=== PATIENT | male | born 1970 | race Caucasian/White ===

== ENCOUNTER 2020-02-25 10:36 | Outpatient (CLI) | payer OTHER, SELFPAY ==
--- NOTE | ~2020-02-25 | MR_ITS ---
EXAMINATION: MR lumbar spine wo [facility] EXAM DATE: 02/25/2020 11:23 INDICATION: Midline low back pain, bilateral sciatica. TECHNIQUE: Multi-sequential, multiplanar MR images of the lumbar spine were obtained without contrast . Sagittal T1, T2, T2 fat saturation images. Axial T2 weighted images. There is no prior study for comparison. FINDINGS: The conus medullaris terminates at the L1/2 level and has normal signal intensity and morph ology. There are no suspicious marrow signal abnormalities. The vertebral bodies are aligned in the AP dimension. Vertebral body and disc heights are well-maintained. Paraspinal soft tissue is unremark able. Level by level evaluation: T12-L1: Disc does not extend beyond the endplate margin. Facet arthropathy: None. Neural foraminal stenosis: No stenosis. Central canal stenosis: No stenosis. L1-L2: Disc does not extend beyond the endplate margin. Facet arthropathy: Mild. Neural foraminal stenosis: No stenosis. Central canal stenosis: No stenosis. L2-L3: There is a mild diffuse disc bulge. Facet arthropathy: None. Neural foraminal stenosis: No stenosis. Central canal stenosis: No stenosis. L3-L4: Disc does not extend beyond the endplate margin. Facet arthropathy: Mild. Neural foraminal stenosis: No stenosis. Central canal stenosis: No stenosis. L4-L5: Disc does not extend beyond the endplate margin. Facet arthropathy: Mild. Neural foraminal stenosis: Mild left. Central canal stenosis: No stenosis. L5-S1: There is a mild diffuse disc bulge. Facet arthropathy: Mild to moderate left, mild right. Neural foraminal stenosis: Moderate left, mild right. Central canal stenosis: No stenosis. IMPRESSION: L5-S1 moderate left neural foraminal stenosis. Otherwise overall mild lumbar spondylosis. Reviewed, dictated and finalized at location A. IMPRESSION: L5-S1 moderate left neural foraminal stenosis. Otherwise overall mi ld lumbar spondylosis.
== END 2020-02-25 10:37 | disposition home or self-care (01) ==
PROVIDERS: Visit Provider Nurse Practitioner Family
DX: M54.41 Lumbago with sciatica, right side (principal); M54.42 Lumbago with sciatica, left side; G89.29 Other chronic pain; M47.816 Spondylosis without myelopathy or radiculopathy, lumbar region; M48.07 Spinal stenosis, lumbosacral region
CPT/HCPCS: 72148

== ENCOUNTER 2020-10-06 12:35 | Emergency (ER) | payer OTHER, SELFPAY ==
--- NOTE | ~2020-10-06 | XR_ITS ---
EXAMINATION: XR chest 2V DATE: 10/06/2020 13:13 INDICATION: Shortness of breath. Anxiety. Hypertension. TECHNIQUE: PA and lateral views of the chest were obtained. COMPARISON: Chest radiograph dated 04/25/2012 FINDINGS: The lungs remain clear with no focal airspace opacities, pulmonary edema, pleural effusion or pneumot horax. The cardiomediastinal silhouette is normal. Mild thoracic spondylosis and chronic mild anterio r wedging of a couple mid thoracic vertebral bodies. IMPRESSION: 1. No acute cardiopulmonary disease. Reviewed, dictated and finalized at location A. RIDER
[2020-10-06 12:37] VITALS: BP 154/97; PULSE 95; RESP 20; TEMP 36.6; O2SAT 98
--- NOTE | 2020-10-06 12:48 | ECG_ITS ---
Measurements Intervals [place] Rate: 99 P: 52 FL: 191 QRS: 32 QRSD: 98 T: 16 QT: 307 QTc: 395 Interpretive Statements SINUS RHYTHM WITH MARKED SINUS ARRHYTHMIA VOLTAGE CRITERIA FOR LVH CONSIDER INFERIOR INFARCT, AGE INDETERMINATE BASELINE ARTIFACT- V5-V6 ABNORMAL ECG Electronically Signed On 10-06-2020 16:30:35 MACHINE HELPER by Josh Feliciano D.O.
[2020-10-06 13:13] LABS: Basophils Percent Auto 0.3 % (0.2-1.2); Eosinophils Absolute Auto 0.1 K/mm3 (0-0.3); Hematocrit 54.1 % (42.0-52.0); Hemoglobin 18.9 g/dL (14.0-18.0); Immature Granulocyte Absolute 0.04 K/mm3 (0.00-0.031); Immature Granulocyte Percent A 0.4 % (0-0.5); Lymphocytes Percent Auto 9.9 % (18.3-44.2); Mean Corpuscular HGB Conc 34.9 g/dl (32-36); Mean Corpuscular Hemoglobin 32.8 pg (26-34); Mean Corpuscular Volume 93.9 fl (80-100); Mean Platelet Volume 10.4 fl (7.4-10.4); Monocytes Absolute Auto 0.8 K/mm3 (0.1-0.6); Monocytes Percent Auto 8.7 % (2.6-8.5); Neutrophils Absolute Auto 7.2 K/mm3 (1.3-6.7); Neutrophils Percent Auto 79.7 % (45.5-73.1); Platelet Count Result 170 k/mm3 (150-375); Red Blood Count 5.76 M/mm3 (4.6-6.20); Red Cell Distribution Width 11.7 % (11.5-14.5); White Blood Count 9.1 K/mm3 (4.5-10.0)
[2020-10-06 13:24] LABS: Anion Gap 5 mmol/L (8-16); Blood Urea Nitrogen 11 mg/dL (9-20); Calcium 9.3 mg/dL (8.4-10.2); Carbon Dioxide 32 mmol/L (22-30); Chloride 99 mmol/L (98-107); Estimated CRCL calculation 100 ml/min; Estimated Glomerular Filt Rate > 60; Glucose 130 mg/dL (75-110); Potassium 4.3 mmol/L (3.4-5.0); Sodium 136 mmol/L (137-145)
[2020-10-06 13:58] LABS: Amphetamine Screen Urine Negative (Negative); Barbiturate Screen Urine Negative (Negative); Benzodiazepines Screen Urine Negative (Negative); Cannabinoid Screen Urine Negative (Negative); Cocaine Screen Urine Negative (Negative); Methadone Screen Urine Negative (Negative); Opiate Screen Urine Negative (Negative); Phencyclidine Screen Urine Negative (Negative)
[2020-10-06 14:31] LABS: Add Urine Microscopic? NO; Appearance Urine Clear (Clear); Bilirubin Urine Negative (Negative); Blood Urine Negative (Negative); Color Urine Yellow (Yellow); Glucose Urine UA Negative (Negative); Ketones Urine Negative (Negative); Leukocyte Esterase Ur Negative LEU/UL (Negative); Nitrate Urine Negative (Negative); Protein Urine Negative (Negative); RBC Urine 0-2 /hpf (0-2); Specific Grav Ur 1.008 (1.001-1.035); Urobilinogen Urine Negative mg/dL (<2.0); WBC Urine 0-3 /hpf
[2020-10-06] MEDS: LORazepam INJ (*CRX) 2 MG/ML VIAL 1 MG IV PUSH (14:58)
[2020-10-06] MEDS: SODIUM CHLORIDE 0.9% IV 1,000 ML 999 ML IV CONT (14:58)
[2020-10-06 15:22] VITALS: BP 148/90; PULSE 84; RESP 14; O2SAT 97
--- NOTE | 2020-10-06 16:06 | ED.GENADULT ---
HPI - General Adult General Chief complaint: Recheck/Abnormal Lab/Rx Stated complaint: weakness, sob Time Seen by Provider: 10/06/20 13:06 Source: patient Mode of arrival: ambulatory Limitations: no limitations History of Present Illness HPI narrative: Patient is a 49-year-old male who presents complaining of generalized weakness, shortness of breath and anxiety. Patient reports being seen at urgent care and Covid tested, with negative results. He denies fever, sore throat or other complaints. He appears restless while sitting in room. Patient also has concerns with elevated blood pressure. He denies chest pain at this time. MD complaint: Anxiety, shortness of breath Related Data Home Medications Medication Instructions Recorded Confirmed cetirizine 10 mg capsule 10 mg PO DAILY 05/22/20 05/22/20 albuterol sulfate INHALATION 10/06/20 10/06/20 fluticasone propionate INTRANASAL 10/06/20 Allergies Allergy/AdvReac Type Severity Reaction Status Date / Time Penicillins Allergy Severe Unknown Verified 10/06/20 12:40 Review of Systems Review of Systems: Narrative: CONSTITUTIONAL: Denies fever, chills, or sweats. EYES: Denies visual changes, redness, or discharge. ENT: Denies rhinorrhea, congestion, sore throat, or otalgia. CARDIOVASCULAR: Denies chest pain, palpitations, or edema. RESPIRATORY: Denies cough, reports intermittent dyspnea. GASTROINTESTINAL: Denies abdominal pain, nausea, vomiting, or diarrhea. GENITOURINARY: Denies dysuria or hematuria. SKIN: Denies rash or itching. MUSCULOSKELETAL: Denies back pain, joint pain, or myalgia. NEUROLOGIC: Denies headache, numbness, dizziness, or weakness. PSYCHIATRIC: Reports anxiety PMFSH Past Medical History Medical History BMI 29.0-29.9,adult Lateral epicondylitis of both elbows Surgical History Surgical History H/O sinus surgery 2019 Family History Family History Mother Hypertension Cerebrovascular accident Heart disease Cancer Father Diabetes mellitus Hypertension Cerebrovascular accident Social History Social History (Updated 10/06/20 @ 16:11 by SUZIE Batista) Smoking status: Current some day smoker Alcohol intake: current Substance use type: other Other substance usage details: Kratom Last use: 2 days ago Living arrangements: with family Occupation/Education: occupation Additional occupation/education comments: [employer] Gender identity (if verbalized by the patient): Male Exam Narrative: Exam Narrative: GENERAL: Well-appearing, well-nourished, and in no acute distress. HEAD: Normocephalic, atraumatic. EYES: No redness or drainage. ENT: Mucous membranes pink and moist. CHEST: No respiratory distress. HEART: Regular rate and rhythm. EXTREMITIES: Normal range of motion. No edema. SKIN: Warm, dry, no rash. NEURO: No focal deficits. Alert and oriented x3. Gait steady. PSYCH: Normal affect. No signs of depression or anxiety. Course Vital Signs Vital signs: Vital Signs Temperature 36.6 C 10/06/20 12:37 Pulse Rate 95 10/06/20 12:37 Respiratory Rate 20 10/06/20 12:37 Blood Pressure 154/97 H 10/06/20 12:37 Pulse Oximetry 98 10/06/20 12:37 Temperature 36.6 C 10/06/20 12:37 Pulse Rate 84 10/06/20 15:22 Respiratory Rate 14 10/06/20 15:22 Blood Pressure 148/90 H 10/06/20 15:22 Pulse Oximetry 97 10/06/20 15:22 Medical Decision Making MDM Narrative Medical decision making narrative: Patient's lab results are within normal limits, chest x-ray reveals no cardiopulmonary disease. Patient does report that he uses kratom very heavily for the past 2 years and has recently stopped. Discussed with patient many other symptoms he may be experiencing could be from withdrawal. Patient is aware of symptoms that shoul
[2020-10-06 16:30] VITALS: BP 150/86; PULSE 92; RESP 18; O2SAT 98
== END 2020-10-06 16:35 | disposition home or self-care (01) ==
PROVIDERS: Emergency Medicine; Emergency Provider Nurse Practitioner
DX: F41.9 Anxiety disorder, unspecified (principal); F17.200 Nicotine dependence, unspecified, uncomplicated; R94.31 Abnormal electrocardiogram [ECG] [EKG]
CPT/HCPCS: 36415; 71046; 80048; 80307; 81003; 85025; 93005; 96374; 99284; J2060; J7030

== ENCOUNTER 2024-11-25 00:33 | Emergency (ER) | payer SELFPAY ==
--- NOTE | ~2024-11-25 | XR_ITS ---
EXAMINATION: XR chest 2V DATE: 11/25/2024 01:06 INDICATION: Chest pain TECHNIQUE: PA and lateral views of the chest were obtained. COMPARISON: Chest radiograph dated 10/06/2020 FINDINGS: The lungs remain clear with no focal airspace opacities, pulmonary edema, pleural effusion or pneumot horax. The cardiomediastinal silhouette is normal. Mild thoracic spondylosis with chronic mild anteri or wedging of a few mid thoracic vertebral bodies. IMPRESSION: 1. No acute cardiopulmonary disease. Reviewed, dictated and finalized at location A. REGULATOR
--- NOTE | 2024-11-25 00:33 | ECG_ITS ---
Test Date: 2024-11-25 00:37:15 Measurements Intervals [place] Rate: 103 P: 46 IN: 210 QRS: 19 QRSD: 101 T: -3 QT: 330 QTc: 432 Interpretive Statements SINUS TACHYCARDIA WITH FIRST DEGREE AV BLOCK POSSIBLE LEFT ATRIAL ENLARGEMENT VOLTAGE CRITERIA FOR LVH CONSIDER INFERIOR INFARCT, AGE INDETERMINATE BASELINE ARTIFACT- I, II, AVR, AVL, V4-V6 ABNORMAL ECG No previous ECG available for comparison Electronically Signed On 11-25-2024 06:40:00 SUGAR REFINERY SUPERVISOR by Josh Feliciano D.O.
--- OUTSIDE RECORDS SUMMARY | 2024-11-25 00:34 | XMS_ITS | Clinical Summary ---
Author Organization [facility] Address [address] [place] [address] Care Team Providers Care Principal Military Analyst Name Role Phone Unavailable Primary Care Provider Unavailabl e Allergies Active Allergy Reactions Criticality Noted Date Comments Penicillins Rash Low 11/30/2017 As a child Medications methylPREDNISol one (MEDROL DOSPACK) 4 mg Tablets, Dose Pack FOLLOW PACKAGE DIRECTIONS Active Multivitamin Capsule Take 1 Capsule by mouth. Active Active Problems No known active problems Encounters Date Type Department Care Team Description 11/14/2024 External Device Data ST[facility] ABSTRACTION Provider, Abstract 11/07/2024 External Device Data ST[facility] ABSTRACTION Provider, Abstract 11/07/2024 External Device Data ST[facility] ABSTRACTION Provider, Abstract 10/25/2024 External Device Data ST[facility] ABSTRACTION Provider, Abstract 10/24/2024 External Device Data ST[facility] ABSTRACTION Provider, Abstract 10/17/2024 External Device Data STL ABSTRACTION Provider, Abstract from Last 3 Months Social History Tobacco Use Types Packs/Day Years Used Date Smoking Tobacco: Former Cigarettes Alcohol Use Standard Drinks/Week Comments Yes 2 (1 standard drink = 0.6 oz pur e alcohol) Sex and Gender Information Value Date Recorded Sex Assigned at Not on file Legal Sex Male 11:22 AM CDT Gender Identity Not on file Sexual Orientation Not on file Last Filed Vital Signs Vital Sign Reading Time Taken Comments Blood Pressure 140/80 07/09/2023 2:00 PM CDT Pulse - - Temperature - - Respiratory Rate - - Oxygen Saturation - - Inhaled Oxygen Concentration - - Weight 93 kg (205 lb) 07/09/2023 2:00 PM CDT Height 182.9 cm (6') 07/09/2023 2:00 PM CDT Body Mass Index 27.8 07/09/2023 2:00 PM CDT Plan of Treatment Health Maintenance Due Date Last Done Comments HEPATITIS B VACCINES (1 of 3 - 19+ 3-dose series) 1990 COLORECTAL SCREENING 2016 Colorectal Cancer Screening 2016 FIT-DNA Q 3 years 2016 FIT/FOBT Q 1 year 2016 Flex Sig/CT Colonography Q 5 years 2016 ZOSTER VACCINE (1 of 2) 2021 INFLUENZA VACCINE (#1) 2024 DTAP/TDAP/TD VACCINES (2 - T d or Tdap) 09/04/2029 09/04/2019 PNEUMOCOCCAL VACCINE 0-64 YEARS Aged Out No longer eligible based on patient's age to complete this topic
--- OUTSIDE RECORDS SUMMARY | 2024-11-25 00:34 | XMS_ITS | Referral Summary ---
Author Organization [facility] Address [address] [place] [address] Care Team Providers Care Cotton Sampler Name Role Phone No, Physician Primary Care Provider [phone] Allergies Active Allergy Reactions Criticality Noted Date Comments Penicillins Unknown As a child Medications multivitamin capsuleIndicatio ns:Vitamin Deficiency Prevention Take 1 capsule by mouth every morning Active xbxc7-ehy-xsp-fi sh oil-L.casei 120 mg-400 mg -4 billion cell capsule Take 1 Caplet by mouth every morning Active anastrozole (ARIMIDEX) 1 mg tabletIndication s:TAKES WITH TESTOSTERONE Take 1 mg by mouth every 30 (thirty) days Active budesonide (PULMICORT) 0.5 mg/2 mL nebulizer solution Mix 1 capsule/ampule in 250 mL of saline irrigations (NeilMed Sinus Rinse Bottle) and irrigate each nostril with half of the bottle twice daily. 120 mL 6 3 Active fluticasone propionate (FLONASE) 50 mcg/actuation nasal spray Administer 1 spray into each nostril 2 (two) times a day 16 g 6 3 Active Active Problems Problem Noted Date Diagnosed Date Obstructive sleep apnea (adult) (pediatric) 0 10/2020 Nasal polyps 02/15/2019 Chronic rhinitis 02/15/2019 Chronic sinusitis 02/15/2019 Blood glucose abnormal 02/17/2014 Overview (01/08/2017): Abnormal blood sugar Social History Tobacco Use Types Packs/Day Years Used Date Smoking Tobacco: Some Days Cigarettes Smokeless Tobacco: Never Tobacco Cessation:Ready to Q uit: No; Counseling Given: Yes Comments:biweekly one or two here and there Alcohol Use Standard Drinks/Week Comments Yes 0 (1 standard drink = 0.6 oz pur e alcohol) social Sex and Gender Information Value Date Recorded Sex Assigned at Not on file 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 Gender Identity Not on file Sexual Orientation Not on file Last Filed Vital Signs Vital Sign Reading Time Taken Comments Blood Pressure 139/81 03/13/2019 1:00 PM CDT Pulse 90 03/13/2019 1:00 PM CDT Temperature 36.7 C (98.1 F) 03/13/2019 11:59 AM CDT Respiratory Rate 16 03/13/2019 1:00 PM CDT Oxygen Saturation 92% 03/13/2019 1:00 PM CDT Inhaled Oxygen Concentration - - Weight 101 kg (222 lb 10.6 oz) 02/23/2019 3:45 P M CDT Height 182.9 cm (6') 02/23/2019 3:45 PM CDT Body Mass Index 30.2 02/23/2019 3:45 PM CDT Plan of Treatment Not on file Medical Devices Implanted Type Area Grid Inspector Device Identifier Shelf Expiration Date Model / Serial / Lot Intersect Ent [id number] Propel 4mm 16mm Steroid Release Zip Tie 370 Mcg Mini Implant - [id number] Implanted:Qty: 1 on 03/13/2019 by Jessica Schreiber MD at [facility] Right: Sinus Intersect Ent [id number] 06/16/2020 [id number] / / [id number] Insurance [place] [facility] CMR Care Teams Cotton Sampler Relationship Specialty Start Date End Date No, Physician PCP - General 01/31/19
--- OUTSIDE RECORDS SUMMARY | 2024-11-25 00:34 | XMS_ITS | Encounter Summary ---
Author Organization [facility] Address [facility] [place] [address] Care Team Providers Care Missile Facilities Repairer Name Role Phone Candelaria Sanchez Primary Care Provider [phone] Reason for Visit * Reason Onset Date Comments Appointment Request 11/23/2024 Encounter Details Date Type Department Care Team (Late st Contact Info) Description 11/23/2024 Telephone [facility] Medical Group Family & Internal Medicine [facility] [address] [place] [address] Candelaria Sanchez FNP [address] [place], [place] [id number] Appointment Request Social History Tobacco Use Types Packs/Day Years Used Date Smoking Tobacco: Former Cigarettes Q uit: 08/24/2021 Smokeless Tobacco: Never Alcohol Use Standard Drinks/Week Comments Yes 0 (1 standard drink = 0.6 oz pur e alcohol) 2-3 times a week PHQ-2 Answer Date Recorded Patient Health Questionnaire-2 Score 0 07/08/2023 Sex and Gender Information Value Date Recorded Sex Assigned at Not on file Legal Sex Male 5:47 PM CDT Gender Identity Not on file Sexual Orientation Not on file documented as of this encounter Progress Notes * Rema Cortez MA - 11/23/2024 4:00 PM CST Pt's friend/contact Peg called, stating pt wants to get screened for blockages in his heart. She said pt sometimes c/o of chest discomfort. She reports pt has recently begun walking for exercise, and says that he only feels good when he is walking. Pt has not been seen in office since 2020, and only Virtual visits since then. Strongly encouraged appt with PCP to address any/all necessary/recommended screenings, discuss fam hx concerns, have labwork done, etc. Pt scheduled for 40 min on 12/01/24 with PCP. Urged ER eval if any immediate concerns. T HEATER documented in this encounter Plan of Treatment Upcoming Encounters Date Type Department Care Team (Late st Contact Info) Description 12/01/2024 9:20 AM RIVET HEATER Office Visit [facility] Medical Group Family & Internal Medicine - [address] [phone] Candelaria Sanchez FNP [address] [place] [id number] documented as of this encounter Visit Diagnoses Not on filedocumented in this encounter Additional Health Concerns Assessment Noted Time PHQ-9 Depression Total Score: 0 01/08/20 20 4:13 PM CDT documented as of this encounter Care Teams Missile Facilities Repairer Relationship Specialty Start Date End Date Candelaria Sanchez FNP [address] [place] [address] PCP - General NURSE PRACTITIONER 12/01/17 documented as of this encounter
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
--- OUTSIDE RECORDS SUMMARY | 2024-11-25 00:34 | XMS_ITS | Clinical Summary ---
Author Organization [facility] Address [address] [place] [address] Care Team Providers Care Chairman Of The Board Name Role Phone No, Physician Primary Care Provider [phone] Allergies Active Allergy Reactions Criticality Noted Date Comments Penicillins Unknown As a child Medications multivitamin capsuleIndicatio ns:Vitamin Deficiency Prevention Take 1 capsule by mouth every morning Active erdn7-sye-eip-fi sh oil-L.casei 120 mg-400 mg -4 billion cell capsule Take 1 Caplet by mouth every morning Active anastrozole (ARIMIDEX) 1 mg tabletIndication s:TAKES WITH TESTOSTERONE Take 1 mg by mouth every 30 (thirty) days Active budesonide (PULMICORT) 0.5 mg/2 mL nebulizer solution Mix 1 capsule/ampule in 250 mL of saline irrigations (NeJamppMed Sinus Rinse Bottle) and irrigate each nostril [...] abnormal 02/17/2014 Overview (01/08/2017): Abnormal blood sugar Surgical History Surgery Date Site/Laterality Comments MANDIBLE FRACTURE SURGERY SINUS SURGERY Medical History Medical History Date Comments Hx Other Medical 2010 hypoglycemia Hx Other Medical Back pain Obstructive sleep apnea (adult) (pediatric) 2020 Family History Medical History Relation Name Comments Diabetes Father Diabetes mellit us; Cause of : Diabetes mellitus Lung cancer Mother Cancer -lung; C ause of : Cancer -lung Diabetes type II Other 1 Family hist ory of Diabetes -Type 2; Cancer Other 2 Family history of Cancer, unknown; Alcohol abuse Other 3 Family history of Alcoholism; Stroke Other 4 Family history of Stroke; Heart disease Other 5 Family history of heart problems; Lung disease Other 6 Family history of lung problems; Anesthesia problems Neg Hx Relation Name Status Comments Father (Age 72) Mother (Age 68) Other 1 Other 2 Other 3 Other 4 Other 5 Other 6 Social History Tobacco Use Types Packs/Day Years [...] on file Legal Sex Male 10:34 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 Gender Identity Not on file Sexual Orientation Not on file Obstetrics History Last Filed Vital Signs Vital Sign Reading [...] 02/23/2019 3:45 PM CDT Plan of Treatment Health Maintenance Due Date Last Done Comments Colon Cancer Screening-Colonoscopy 1971 Depression Screening 1971 Hepatitis C Screening 1971 Prostate Cancer Screening-PSA 1971 Hepatitis B Screening 1989 Regular Well Visit/Exam 18-64 1989 Pneumococcal vaccine <65 (1 of 2 - PCV) 1990 Zoster Vaccine (1 of 2) 1990 Influenza Vaccine (#1) 2024 DTaP/Tdap/Td Vaccine (2 - Td or Tdap) 09/04/202911/2018 Medical Devices Implanted Type Area Residential Advisor Device Identifier Shelf Expiration Date Model / Serial / Lot Intersect Ent [id number] Propel 4mm 16mm Steroid Release Zip Tie 370 Mcg Mini Implant - [id number] Implanted:Qty: 1 on 03/13/2019 by Jessica Schrebier MD at [facility] Medicine Right: Sinus Intersect Ent [id number] 06/16/2020 [id number] / / [id number] Insurance [place] [facility] CMR Care Teams Chairman Of The Board Relationship Specialty Start Date End Date No, Physician PCP - General 01/31/19
[2024-11-25 00:47] VITALS: BP 212/105; PULSE 108; RESP 18; TEMP 36.3; O2SAT 97
[2024-11-25 00:54] LABS: Basophils Percent Auto 0.5 % (0.2-1.2); Eosinophils Absolute Auto 0.2 K/mm3 (0-0.3); Eosinophils Percent Auto 2.1 % (0-4.4); Hematocrit 50.7 % (42.0-52.0); Hemoglobin 17.3 g/dL (14.0-18.0); Immature Granulocyte Absolute 0.02 K/mm3 (0.00-0.031); Immature Granulocyte Percent A 0.2 % (0-0.5); Lymphocytes Absolute Auto 1.98 K/mm3 (0.9-3.2); Lymphocytes Percent Auto 23.6 % (18.3-44.2); Mean Corpuscular HGB Conc 34.1 g/dl (32-36); Mean Corpuscular Hemoglobin 31.2 pg (26-34); Mean Corpuscular Volume 91.5 fl (80-100); Mean Platelet Volume 10.3 fl (7.4-10.4); Monocytes Absolute Auto 1.1 K/mm3 (0.1-0.6); Monocytes Percent Auto 12.9 % (2.6-8.5); Neutrophils Absolute Auto 5.1 K/mm3 (1.3-6.7); Neutrophils Percent Auto 60.7 % (45.5-73.1); Platelet Count Result 202 k/mm3 (150-375); Red Blood Count 5.54 M/mm3 (4.6-6.20); Red Cell Distribution Width 12.9 % (11.5-14.5); White Blood Count 8.4 K/mm3 (4.5-10.0)
[2024-11-25 01:02] LABS: Alanine Aminotransferase 30 U/L (6-50); Albumin Level 4.6 g/dL (3.5-5.1); Alkaline Phosphatase 94 U/L (38-126); Anion Gap 13 mmol/L (4-12); Aspartate Amino Transferase 32 U/L (17-59); Bilirubin,Total 0.6 mg/dL (0.2-1.3); Blood Urea Nitrogen 17 mg/dL (9-20); Calcium 9.6 mg/dL (8.4-10.2); Carbon Dioxide 27 mmol/L (22-30); Chloride 100 mmol/L (98-107); Estimated CRCL calculation 84 ml/min; Estimated Glomerular Filt Rate > 60; Glucose 105 mg/dL (65-110); Lipase 1666 U/L (23-300); Potassium 3.5 mmol/L (3.4-5.0); Sodium 140 mmol/L (137-145)
[2024-11-25 01:04] LABS: INR 0.8; Prothrombin Time 11.7 Seconds (11.1-14.7)
[2024-11-25 01:05] LABS: Partial Thromboplastin Time 25.7 Seconds (22.3-36.8)
[2024-11-25 01:14] LABS: Troponin I < 0.012 ng/mL (0.000-0.034)
[2024-11-25 01:34] LABS: Influenza A QL RT-PCR Negative (Negative); Influenza B QL RT-PCR Negative (Negative); RSV RNA, RT-PCR Negative (Negative); SARS-CoV-2 RNA PCR Negative (Negative)
--- NOTE | 2024-11-25 04:11 | PC.NURSE ---
pt to internal combustion engine assembler I feel better, i am going to go.
--- OUTSIDE RECORDS SUMMARY | 2024-11-25 04:25 | XMS_ITS | Encounter Summary ---
Author Organization [facility] Address [facility] [place] [address] Care Team Providers Care Bellhop Name Role Phone Candelaria Sanchez Primary Care Provider [phone] Reason for Visit * Reason Onset Date Comments Appointment Request 11/23/2024 Encounter Details Date Type Department Care Team (Late st Contact Info) Description 11/23/2024 Telephone [facility] Medical Group Family & Internal Medicine [facility] [address] [place] [address] Candelaria Sanchez FNP [address] [place], [place] [phone] Appointment Request Social History Tobacco Use Types [...] Urged ER eval if any immediate concerns. US AMBASSADOR documented in this encounter Plan of Treatment Upcoming Encounters Date Type Department Care Team (Late st Contact Info) Description 12/01/2024 9:20 AM CAMPUS AMBASSADOR Office Visit [facility] Medical Group Family & Internal Medicine - [address] [phone] Candelaria Sanchez FNP [address] [place] [phone] documented as of this encounter Visit Diagnoses Not on filedocumented in this encounter Additional Health Concerns Assessment Noted Time PHQ-9 Depression Total Score: 0 01/08/20 20 4:13 PM CDT documented as of this encounter Care Teams Bellhop Relationship Specialty Start Date End Date Candelaria Sanchez FNP [address] [place] [address] PCP - General NURSE PRACTITIONER 12/01/17 documented as of this encounter
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
--- OUTSIDE RECORDS SUMMARY | 2024-11-25 04:25 | XMS_ITS | Referral Summary ---
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 Gender Identity Not on file Sexual Orientation [...] on file Medical Devices Implanted Type Area Associate Juvenile Court Judge Device Identifier Shelf Expiration Date Model / Serial / Lot Intersect Ent [id number] Propel 4mm 16mm Steroid Release Zip Tie 370 Mcg Mini Implant - [id number] Implanted:Qty: 1 on 03/13/2019 by Jessica Schreiber MD at [facility] Right: Sinus Intersect Ent [id number] 06/16/2020 [id number] / / [id number] Insurance [place] CHO[place] [facility] CMR Care Teams Knurling Machine Tender Relationship Specialty Start Date End Date No, Physician PCP - General 01/31/19
--- OUTSIDE RECORDS SUMMARY | 2024-11-25 04:25 | XMS_ITS | Clinical Summary ---
Author Organization [facility] Address [address] [place] [address] Care Team Providers Care King Maker Name Role Phone Unavailable Primary Care Provider [...]
--- OUTSIDE RECORDS SUMMARY | 2024-11-25 04:25 | XMS_ITS | Clinical Summary ---
Author Organization [facility] Address [address] [place] [address] Care Team Providers Care Cork Cutter Name Role Phone No, Physician Primary Care Provider [phone] Allergies Active Allergy Reactions Criticality Noted Date Comments Penicillins Unknown As a child Medications multivitamin capsuleIndicatio ns:Vitamin Deficiency Prevention Take 1 capsule by mouth every morning Active xojq1-ktq-xla-fi sh oil-L.casei 120 mg-400 mg -4 billion cell capsule Take 1 Caplet by mouth every morning Active anastrozole (ARIMIDEX) 1 mg tabletIndication s:TAKES WITH TESTOSTERONE Take 1 mg by mouth every 30 (thirty) days Active budesonide (PULMICORT) 0.5 mg/2 mL nebulizer solution Mix 1 capsule/ampule in 250 mL of saline irrigations ([employer] Sinus Rinse Bottle) and irrigate each nostril [...] on file 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 Gender Identity Not on file Sexual Orientation [...] Tdap) 09/04/202911/2018 Medical Devices Implanted Type Area Licensed Mortician Device Identifier Shelf Expiration Date Model / Serial / Lot Intersect Ent [id number] Propel 4mm 16mm Steroid Release Zip Tie 370 Mcg Mini Implant - [id number] Implanted:Qty: 1 on 03/13/2019 by Jessica Schreiber MD at [facility] Medicine Right: Sinus Intersect Ent [id number] 06/16/2020 [id number] / / [id number] Insurance CHOICE [place]F [place]PO [place] [facility] CMR Care Teams Cork Cutter Relationship Specialty Start Date End Date No, Physician PCP - General 01/31/19
== END 2024-11-25 04:49 | disposition left against medical advice (07) ==
LOC: ANHED 04:23
PROVIDERS: Emergency Provider Emergency Medicine; PCP Nurse Practitioner Family
DX: R07.9 Chest pain, unspecified (principal); Z20.822 Contact with and (suspected) exposure to COVID-19
CPT/HCPCS: 36415; 71046; 80053; 83690; 84484; 85025; 85610; 85730; 87637; 93005; 99199